=== PATIENT | male | born 1960 | race African-American/Black ===

== ENCOUNTER 2016-07-25 12:13 | Emergency (ER) | payer OTHER ==
[~2016-07-25] VITALS: Ht 175.3 cm; Wt 59.0 kg
[~2016-07-25 12:13] MED LIST: AMLO10TA4 PO; ASPI81TA31 PO; CLOP75TA2 PO; LORA2TAB PO; Metoprolol Tartrate PO; QUET100T PO
--- NOTE | 2016-07-25 12:32 | NUR ---
pt was evaluated by dr Lowe. pt was d/c to home. d/c tinstructions given to the pt.
[2016-07-25 12:33] VITALS: BP 140/79
== END 2016-07-25 12:34 | disposition home or self-care (01) ==
LOC: ER 12:13
DX: M72.2 Plantar fascial fibromatosis (principal); I10 Essential (primary) hypertension; F10.20 Alcohol dependence, uncomplicated; Z88.1 Allergy status to other antibiotic agents; Z88.8 Allergy status to other drugs, medicaments and biological substances; Z79.82 Long term (current) use of aspirin
CPT/HCPCS: 99283; A4663

== ENCOUNTER 2016-08-09 15:30 | Emergency (ER) | payer OTHER ==
[~2016-08-09] VITALS: Ht 175.3 cm; Wt 59.0 kg
--- NOTE | 2016-08-09 16:00 | NUR ---
Patient discharged to home in stable conditon. Written and verbal after care instructions given. Patient verbalizes understanding of instructions.pt walks in steady gait
== END 2016-08-09 16:12 | disposition home or self-care (01) ==
LOC: ER 15:33
DX: Z76.0 Encounter for issue of repeat prescription (principal); G89.29 Other chronic pain; F10.20 Alcohol dependence, uncomplicated; I10 Essential (primary) hypertension; Z88.1 Allergy status to other antibiotic agents; Z88.8 Allergy status to other drugs, medicaments and biological substances
CPT/HCPCS: 99283; A4663

== ENCOUNTER 2016-08-16 12:54 | Emergency (ER) | payer OTHER ==
[~2016-08-16] VITALS: Ht 172.7 cm; Wt 59.0 kg
--- NOTE | 2016-08-16 13:10 | NUR ---
Pt ambulatory to bed 4.
[2016-08-16] MEDS ORDERED: HYDROMORPHONE 1 MG/1 ML DISP.SYRIN IM ONE (13:30)
[2016-08-16] MEDS ORDERED: PROMETHAZINE HCL 25 MG/1 ML VIAL IM ONE (13:30)
[2016-08-16] MEDS ORDERED: PROMETHAZINE HCL 25 MG/1 ML VIAL ONE (13:50)
[2016-08-16] MEDS ORDERED: HYDROMORPHONE 2 MG/1 ML DISP.SYRIN ONE (13:50)
--- NOTE | 2016-08-16 13:54 | NUR ---
Patient discharged to home in stable conditon. Written and verbal after care instructions given to patient. Patient verbalizes understanding of instructions. Patient briskly ambulated OUT of ER with steady gait after the discharge instructions and papers were given.
== END 2016-08-16 13:56 | disposition home or self-care (01) ==
LOC: ER 12:54
DX: Z76.0 Encounter for issue of repeat prescription (principal); M54.9 Dorsalgia, unspecified; F41.9 Anxiety disorder, unspecified; I10 Essential (primary) hypertension; G89.29 Other chronic pain; F10.20 Alcohol dependence, uncomplicated; Z88.1 Allergy status to other antibiotic agents; Z88.8 Allergy status to other drugs, medicaments and biological substances; Z79.82 Long term (current) use of aspirin
CPT/HCPCS: 96372 ×2; 99284; A4663; J1170; J2550

== ENCOUNTER 2016-09-19 10:21 | Emergency (ER) | payer OTHER ==
[~2016-09-19] VITALS: Ht 172.7 cm; Wt 59.0 kg
[2016-09-19] MEDS ORDERED: HYDR-548 PO (10:28)
--- NOTE | 2016-09-19 10:40 | NUR ---
Patient discharged to home in stable conditon. Written and verbal after care instructions given to patient. Patient verbalizes understanding of instructions.
[2016-09-19] MEDS ORDERED: HYDROMORPHONE 1 MG/1 ML DISP.SYRIN IM ONE (10:45)
[2016-09-19] MEDS ORDERED: PROMETHAZINE HCL 25 MG/1 ML VIAL IM ONE (10:45)
[2016-09-19] MEDS ORDERED: HYDROMORPHONE 2 MG/1 ML DISP.SYRIN ONE (10:49)
[2016-09-19] MEDS ORDERED: PROMETHAZINE HCL 25 MG/1 ML VIAL ONE (10:49)
== END 2016-09-19 10:42 | disposition home or self-care (01) ==
LOC: ER 10:21
DX: M54.5 Low back pain (principal); I10 Essential (primary) hypertension; F10.20 Alcohol dependence, uncomplicated; Z88.8 Allergy status to other drugs, medicaments and biological substances; Z88.1 Allergy status to other antibiotic agents; Z79.82 Long term (current) use of aspirin
CPT/HCPCS: A4663; J1170; J2550

== ENCOUNTER 2016-10-09 20:31 | Emergency (ER) | payer OTHER ==
[~2016-10-09] VITALS: Ht 172.7 cm; Wt 59.0 kg
[~2016-10-09 20:31] MED LIST changes: +HYDR-548 PO
[2016-10-09] MEDS: HYDROMORPHONE 1 MG/1 ML DISP.SYRIN IM ONE (21:30)
[2016-10-09] MEDS ORDERED: PROMETHAZINE HCL 25 MG/1 ML VIAL ONE (21:30)
[2016-10-09] MEDS ORDERED: HYDROMORPHONE 1 MG/1 ML DISP.SYRIN ONE ×2 (21:30→21:32)
[2016-10-09] MEDS: PROMETHAZINE HCL 25 MG/1 ML VIAL IM ONE (21:31)
--- NOTE | 2016-10-09 21:31 | NUR ---
Pt to room, pt c/o back pain then sts he developed intermittent left sided chest pain around approx 1600. Pt seen by MD. To the MD pt verbalized back pain and need for medication refills. Pt medicated for discomfort. Will monitor for effects of medication.
--- NOTE | 2016-10-09 21:48 | NUR ---
Pt stable for discharge per MD. Pt given ACI. Pt verbalized understanding of dc instructions. Pt ambulated out of er with steady gait.
[2016-10-09 21:49] VITALS: BP 177/82
== END 2016-10-09 21:50 | disposition home or self-care (01) ==
LOC: ER 20:34
DX: M54.9 Dorsalgia, unspecified (principal); Z76.0 Encounter for issue of repeat prescription; Z88.1 Allergy status to other antibiotic agents; Z88.8 Allergy status to other drugs, medicaments and biological substances; I10 Essential (primary) hypertension
CPT/HCPCS: 93005; A4663; J1170; J2550

== ENCOUNTER 2016-10-27 20:08 | Emergency (ER) | payer OTHER ==
[~2016-10-27] VITALS: Ht 172.7 cm; Wt 59.0 kg
[~2016-10-27 20:08] MED LIST changes: +CLOP75TA15 PO; -CLOP75TA2 PO
--- NOTE | 2016-10-27 20:16 | NUR ---
PATIENT WALKED INTO ER C/O NECK,BACK AND RIGHT FOOT PAIN WHICH IS CHRONIC. HERE FOR WORSENING SYMPTOMS. PT IS ALERT, ORIENTED X 4, NO RESP DISTRESS NOTED OR REPORTED UPON ASSESSMENT... MD AT BEDSIDE...
[2016-10-27] MEDS ORDERED: PROMETHAZINE HCL 25 MG/1 ML VIAL IM ONE (20:45)
[2016-10-27] MEDS ORDERED: HYDROMORPHONE 1 MG/1 ML DISP.SYRIN IM ONE (20:45)
--- NOTE | 2016-10-27 20:47 | NUR ---
Patient discharged to home in stable conditon. Written and verbal after care instructions given. Patient verbalizes understanding of instructions. pt walked out of er unassisted with belongings at side...
[2016-10-27 20:48] VITALS: BP 144/97
[2016-10-27] MEDS ORDERED: HYDROMORPHONE 2 MG/1 ML DISP.SYRIN ONE (20:49)
[2016-10-27] MEDS ORDERED: PROMETHAZINE HCL 25 MG/1 ML VIAL ONE (20:49)
== END 2016-10-27 20:49 | disposition home or self-care (01) ==
LOC: ER 20:10
DX: M54.2 Cervicalgia (principal); G89.29 Other chronic pain; M79.672 Pain in left foot; F10.20 Alcohol dependence, uncomplicated; I10 Essential (primary) hypertension; Z88.1 Allergy status to other antibiotic agents; Z88.8 Allergy status to other drugs, medicaments and biological substances; Z79.82 Long term (current) use of aspirin
CPT/HCPCS: A4663; J1170; J2550

== ENCOUNTER 2016-11-22 20:46 | Emergency (ER) | payer OTHER ==
[~2016-11-22] VITALS: Ht 172.7 cm; Wt 59.0 kg
[2016-11-22] MEDS ORDERED: HYDROMORPHONE 1 MG/1 ML DISP.SYRIN IM ONE (21:30)
[2016-11-22] MEDS ORDERED: PROMETHAZINE HCL 25 MG/1 ML VIAL IM ONE (21:30)
--- NOTE | 2016-11-22 21:40 | NUR ---
Pt ambulated to room with steady gait. Pt c/o chronic low back pain. Pt seen by MD. Pt medicated for discomfort. Will monitor for effects of medication. Pt resting in position of comfort for self.
[2016-11-22] MEDS ORDERED: HYDROMORPHONE 1 MG/1 ML DISP.SYRIN ONE (21:46)
[2016-11-22] MEDS ORDERED: PROMETHAZINE HCL 25 MG/1 ML VIAL ONE (21:46)
--- NOTE | 2016-11-22 22:02 | NUR ---
Pt sts pain improving. Pt stable for discharge per MD. Pt given ACI. Pt verbalized understanding of dc instructions. Pt ambulated out of er with steady gait, alert and oriented with all personal belongings.
[2016-11-22 22:04] VITALS: BP 164/95
== END 2016-11-22 22:00 | disposition home or self-care (01) ==
LOC: ER 20:46
DX: Z76.0 Encounter for issue of repeat prescription (principal); I10 Essential (primary) hypertension; F10.20 Alcohol dependence, uncomplicated; Z88.1 Allergy status to other antibiotic agents; Z88.8 Allergy status to other drugs, medicaments and biological substances; Z79.82 Long term (current) use of aspirin
CPT/HCPCS: A4663; J1170; J2550

== ENCOUNTER 2016-12-20 10:22 | Emergency (ER) | payer OTHER ==
[~2016-12-20] VITALS: Ht 180.3 cm; Wt 61.2 kg
[2016-12-20] MEDS ORDERED: PROMETHAZINE HCL 25 MG/1 ML VIAL IM ONE (10:45)
[2016-12-20] MEDS ORDERED: HYDROMORPHONE 1 MG/1 ML DISP.SYRIN IM ONE (10:45)
--- NOTE | 2016-12-20 10:48 | NUR ---
Patient discharged to home in stable conditon. Written and verbal after care instructions given. Patient verbalizes understanding of instructions.
[2016-12-20] MEDS ORDERED: PROMETHAZINE HCL 25 MG/1 ML VIAL ONE (10:56)
[2016-12-20] MEDS ORDERED: HYDROMORPHONE 2 MG/1 ML DISP.SYRIN ONE (10:56)
== END 2016-12-20 10:50 | disposition home or self-care (01) ==
LOC: ER 10:22
DX: Z76.0 Encounter for issue of repeat prescription (principal); M54.9 Dorsalgia, unspecified; G89.29 Other chronic pain; I10 Essential (primary) hypertension; Z88.6 Allergy status to analgesic agent; Z88.5 Allergy status to narcotic agent
CPT/HCPCS: 96372 ×2; 99284; A4663; J1170; J2550

== ENCOUNTER 2016-12-22 19:44 | Inpatient (IN) | payer OTHER ==
[~2016-12-22] VITALS: Ht 172.7 cm; Wt 58.1 kg
[2016-12-22] MEDS ORDERED: ASPIRIN 325 MG TABLET PO ONE (20:15)
--- NOTE | 2016-12-22 20:18 | NUR ---
Pt ambulated to room with steady gait. Pt c/o non radiating substernal chest pain started approx 1700. As well as abd pain with N/V. Pt placed on monitor ST. EKG obtained and given to Dr. Ball. Pt resting in position of comfort for self. Resp even and unlabored. No N/V noted pt spitting into vomit bag. Lab at bedside.
[2016-12-22] MEDS ORDERED: ASPIRIN 325 MG TABLET ONE (21:03)
--- NOTE | 2016-12-22 22:00 | NUR ---
Several attempts made, unable to obtain labs. IV established to L. shoulder after three attempts. Not able to obtain labs from IV. Dr. Ball notified. Pt set up for femoral stick. Pt requesting ativan and pain medication. Dr. Ball notified. Awaiting further orders.
[2016-12-22] MEDS ORDERED: ONDANSETRON IV *ER 4 MG/2 ML VIAL IV ONE (22:15)
[2016-12-22] MEDS ORDERED: HYDROMORPHONE 1 MG/1 ML DISP.SYRIN IV ONE (22:15)
[2016-12-22] MEDS ORDERED: LORAZEPAM 2 MG/1 ML VIAL IV ONE (22:15)
[2016-12-22 22:30] LABS: BASOPHILS % (AUTO) 0.3 % (0.0-2.0); EOSINOPHILS # (AUTO) 0.1 K/uL (0.0-0.7); EOSINOPHILS % (AUTO) 1.3 % (0.0-7.0); HEMATOCRIT 32.4 % (40-50); HEMOGLOBIN 10.5 G/DL (14.0-18.0); LYMPHOCYTES # (AUTO) 0.5 K/UL (0.8-4.8); LYMPHOCYTES % (AUTO) 10.7 % (20.5-51.5); MEAN CORPUSCULAR HEMOGLOBIN 27.1 UUG (27.0-31.0); MEAN CORPUSCULAR HGB CONC 32 g/dL (32.0-37.0); MEAN CORPUSCULAR VOLUME 83.9 FL (82.0-92.0); MONOCYTES # (AUTO) 0.2 K/UL (0.1-1.30); MONOCYTES % (AUTO) 3.5 % (0.0-11.0); NEUTROPHILS # (AUTO) 3.8 K/UL (1.8-8.9); NEUTROPHILS % (AUTO) 84.2 % (38.5-71.5); PLATELET COUNT (AUTO) 288 K/UL (150-450); RED BLOOD CELL COUNT(AUTO) 3.87 MIL/UL (4.7-6.1); WHITE BLOOD COUNT (AUTO) 4.6 K/UL (4.0-11.2)
[2016-12-22 22:47] LABS: CREATININE 1.7 mg/dL (0.6-1.3); POTASSIUM 3.9 mmol/L (3.5-5.1)
[2016-12-22] MEDS ORDERED: HYDROMORPHONE 2 MG/1 ML DISP.SYRIN ONE (22:57)
[2016-12-22] MEDS ORDERED: ONDANSETRON 4 MG/2 ML VIAL ONE (22:58)
[2016-12-22] MEDS ORDERED: LORAZEPAM 2 MG/1 ML VIAL ONE (22:58)
[2016-12-22 23:01] LABS: BILIRUBIN,DIRECT 0.2 mg/dL (0.0-0.2); BILIRUBIN,TOTAL 0.4 mg/dL (0.2-1.0); TOTAL PROTEIN, SERUM 8.1 g/dL (6.4-8.2)
--- NOTE | 2016-12-22 23:16 | NUR ---
Pt medicated for discomfort, will monitor for effects of medication. Pt repositioned for comfort. Pt remains ST on monitor. Fluid bolus infusing freely to gravity.
[2016-12-22] MEDS ORDERED: IV NORMAL SALINE 1000 ML BAG IV ONE (23:30)
[2016-12-23] MEDS ORDERED: hydrALAZINE HCL 20 MG/1 ML VIAL IV ONE (00:15)
--- NOTE | 2016-12-23 00:18 | NUR ---
Report called to SHRAVAN Sinclair. Dr. Ball notified of pt's blood pressure. Awaiting further orders.
--- NOTE | 2016-12-23 00:25 | NUR ---
Pt medicated for elevated bp, will monitor for effects of medication
[2016-12-23] MEDS ORDERED: hydrALAZINE HCL 20 MG/1 ML VIAL ONE (00:35)
--- NOTE | 2016-12-23 00:55 | NUR ---
Per Dr. Ball, repeat lactic not required at this time.
--- NOTE | 2016-12-23 01:00 | NUR ---
Pt blood pressure improved. Preparing to transfer pt to the floor.
[2016-12-23 01:22] VITALS: BP 119/65
[2016-12-23 04:00] VITALS: BP 120/79
[2016-12-23] MEDS ORDERED: ONDANSETRON 4 MG/2 ML VIAL IV PRN (05:00)
[2016-12-23] MEDS ORDERED: MAGNESIUM HYDROXIDE 30 ML LIQUID UDC PO PRN (05:00)
[2016-12-23] MEDS ORDERED: LORAZEPAM 0.5 MG TABLET PO PRN (05:00)
[2016-12-23] MEDS ORDERED: HYDROCODONE/APAP 5-325MG TABLET PO PRN (05:00)
[2016-12-23] MEDS ORDERED: Z GUARD REMEDY PASTE 57 GM TUBE TOP PRN (05:00)
[2016-12-23] MEDS ORDERED: ACETAMINOPHEN 325 MG TABLET PO PRN (05:00)
[2016-12-23] MEDS ORDERED: ZOLPIDEM 5 MG TABLET PO PRN (05:00)
[2016-12-23] MEDS: MORPHINE SULFATE 2 MG/1 ML DISP.SYRIN IV PRN ×2 (05:20→09:31)
[2016-12-23] MEDS ORDERED: MORPHINE SULFATE 2 MG/1 ML DISP.SYRIN ONE (05:29)
[2016-12-23] MEDS ORDERED: IV NS 1000 ML 1,000 ML IV PRN (06:45)
--- NOTE | 2016-12-23 07:51 | NUR ---
CADIAC DIET PER DR NAVARRO
[2016-12-23] MEDS: PANTOPRAZOLE SODIUM 40 MG TABLET.DR PO SCH (08:33)
[2016-12-23] MEDS: QUETIAPINE FUMARATE 100 MG TABLET PO SCH ×2 (08:34→16:13)
[2016-12-23] MEDS: CLOPIDOGREL 75 MG TABLET PO SCH (08:34)
[2016-12-23] MEDS: NITROGLYCERIN OINT 1 GM PACKET TP SCH ×3 (08:34→17:46)
[2016-12-23] MEDS: ASPIRIN 81 MG TAB.CHEW PO SCH (08:34)
[2016-12-23] MEDS ORDERED: HYDROCODONE/APAP 10-325 MG TABLET PO SCH (09:00)
[2016-12-23] MEDS ORDERED: METOPROLOL TARTRATE 25 MG TABLET PO SCH (09:00)
[2016-12-23] MEDS: AMLODIPINE 10 MG TABLET PO SCH (09:00)
[2016-12-23] MEDS ORDERED: ENOXAPARIN SODIUM 60 MG/0.6 ML DISP.SYRIN SQ SCH (09:30)
[2016-12-23 10:39] LABS: BILIRUBIN,TOTAL 0.2 mg/dL (0.2-1.0); CREATININE 1.7 mg/dL (0.6-1.3); MAGNESIUM 1.9 mg/dL (1.8-2.4); PHOSPHOROUS 1.6 mg/dL (2.5-4.9); POTASSIUM 3.7 mmol/L (3.5-5.1); TOTAL PROTEIN, SERUM 6.8 g/dL (6.4-8.2)
[2016-12-23 10:42] LABS: BASOPHILS % (AUTO) 0.4 % (0.0-2.0); EOSINOPHILS # (AUTO) 0.1 K/uL (0.0-0.7); EOSINOPHILS % (AUTO) 3.2 % (0.0-7.0); HEMOGLOBIN 9.3 G/DL (14.0-18.0); LYMPHOCYTES # (AUTO) 0.7 K/UL (0.8-4.8); LYMPHOCYTES % (AUTO) 22.3 % (20.5-51.5); MEAN CORPUSCULAR HEMOGLOBIN 27.7 UUG (27.0-31.0); MEAN CORPUSCULAR HGB CONC 33 g/dL (32.0-37.0); MEAN CORPUSCULAR VOLUME 85.1 FL (82.0-92.0); MONOCYTES # (AUTO) 0.3 K/UL (0.1-1.30); MONOCYTES % (AUTO) 8.4 % (0.0-11.0); NEUTROPHILS # (AUTO) 2.2 K/UL (1.8-8.9); NEUTROPHILS % (AUTO) 65.7 % (38.5-71.5); PLATELET COUNT (AUTO) 288 K/UL (150-450)
[2016-12-23] MEDS ORDERED: METOPROLOL TARTRATE 25 MG TABLET PO ONE (10:45)
[2016-12-23 10:48] LABS: HEMATOCRIT 28.5 % (40-50); RED BLOOD CELL COUNT(AUTO) 3.35 MIL/UL (4.7-6.1); WHITE BLOOD COUNT (AUTO) 3.3 K/UL (4.0-11.2)
[2016-12-23] MEDS ORDERED: HYDROMORPHONE 1 MG/1 ML DISP.SYRIN IV PRN (11:00)
--- NOTE | 2016-12-23 11:00 | NUR ---
PER LARISSA EGAN "SWITCH DILAUDID 1MG Q4H PRN" . "STOP MORPHINE 2MG"
[2016-12-23 11:42] VITALS: BP 102/70
[2016-12-23 12:26] LABS: THYROID STIMULATING HORMONE 0.388 mIU/mL (0.358-3.740)
[2016-12-23] MEDS: HYDROMORPHONE 2 MG/1 ML DISP.SYRIN IV PRN ×2 (13:26→20:10)
--- NOTE | 2016-12-23 13:44 | NUR ---
pt asks for benadryl iv, paged LARISSA Thomas. Per LARISSA Live "claritin 10mg po daily"
[2016-12-23 13:57] LABS: *BLOOD, URINE NEGATIVE (NEGATIVE); *CLARITY,URINE CLEAR (CLEAR); *COLOR,URINE YELLOW (YELLOW); *KETONES,URINE NEGATIVE (NEGATIVE); *PROTEIN,URINE 2+ (NEGATIVE); *UROBILINOGEN,URINE 0.2 E.U./dl (NORMAL); LEUKOCYTE ESTERASE ,URINE NEGATIVE (NEGATIVE); NITRITE, URINE NEGATIVE (NEGATIVE); PH,URINE 5.5 (5.0-8.0); UGLUCOSE NEGATIVE (NEGATIVE)
[2016-12-23 13:58] LABS: *BILIRUBIN,URIN 1+ (NEGATIVE)
[2016-12-23 14:00] LABS: BACTERIA,URINE NONE SEEN /HPF (NONE SEEN); MUCUS,URINE FEW /LPF (0-FEW); RBC,URINE NONE SEEN /HPF (0-3); SQUAMOUS EPITHELIAL CELL,UR FEW /HPF (NONE SEEN); WBC,URINE 0-3 /HPF (0-3)
[2016-12-23] MEDS: LORATADINE 10 MG TABLET PO SCH (14:16)
[2016-12-23] MEDS ORDERED: NEUTRA PHOS PACKET PO ONE (15:45)
[2016-12-23 15:59] VITALS: BP 120/72
--- NOTE | 2016-12-23 16:17 | NUR ---
PT REFUSED DVT PUMPS
[2016-12-23 16:56] LABS: IRON, SERUM 37 ug/dL (50-175)
[2016-12-23 17:06] LABS: MAGNESIUM 1.8 mg/dL (1.8-2.4); PHOSPHOROUS 1.8 mg/dL (2.5-4.9)
--- NOTE | 2016-12-23 19:00 | NUR ---
PT IS MISSING IV, TRIED 2 TIMES. LET ANOTHER NURSE TRY TO START AN IV. PT IS HARD STICK AND REFUSES TO BE STACK AGAIN. CALLED FOR MIDLINE PER MD ORDER. PT IS ASKING FOR PAIN MEDICATIONS. NO S/S OF RESPIRATORY DISTRESS NOTED. ALL SAFETY NEEDS ARE MET.
--- NOTE | 2016-12-23 19:30 | NUR ---
Pt in room awake and requesting pain medication. Awaiting Midline nurse at this time. Denies any chest pain and no signs of distress at this time.
[2016-12-23] MEDS: LORAZEPAM 2 MG/1 ML VIAL IV PRN (20:13)
[2016-12-23 20:31] VITALS: BP 134/88
[2016-12-23] MEDS ORDERED: DOCUSATE SODIUM 100 MG CAPSULE PO SCH (21:00)
[2016-12-23] MEDS: METOPROLOL TARTRATE 50 MG TABLET PO SCH (21:35)
[2016-12-23] MEDS: MAGNESIUM SULFATE/D5W 100 ML IV SCH (22:11)
[2016-12-24] MEDS: HYDROMORPHONE 2 MG/1 ML DISP.SYRIN IV PRN ×2 (00:18→05:24)
[2016-12-24] MEDS: MAGNESIUM SULFATE/D5W 100 ML IV SCH (00:19)
[2016-12-24] MEDS: NITROGLYCERIN OINT 1 GM PACKET TP SCH ×3 (00:20→11:40)
[2016-12-24 00:32] VITALS: BP 145/99
[2016-12-24] MEDS: LORAZEPAM 2 MG/1 ML VIAL IV PRN ×2 (01:52→07:37)
--- NOTE | 2016-12-24 01:55 | NUR ---
Pt agitated and wanting to get up out of bed. Pt confused and states I want to go out of the room. Fall precaution emphasized and currently has midline to right upper arm inserted. Pt's HR increases 120s upon movement. No reports of distress or chest pain at this time. Ativan PRN given.
[2016-12-24 04:00] VITALS: BP 154/107
[2016-12-24] MEDS: PANTOPRAZOLE SODIUM 40 MG TABLET.DR PO SCH (05:23)
--- NOTE | 2016-12-24 07:57 | NUR ---
PATIENT RECEIVED IN ROOM RESTING ALERT AWAKE BUT CONFUSED. PATIENT UNSTEADY WITH AMBULATION. IV SITE INTACT AND PATENT. CONTINUES ON 1:! SITTER AT BEDSIDE FOR SAFETY.
[2016-12-24] MEDS: ASPIRIN 81 MG TAB.CHEW PO SCH (08:18)
[2016-12-24] MEDS: LORATADINE 10 MG TABLET PO SCH (08:18)
[2016-12-24] MEDS: METOPROLOL TARTRATE 50 MG TABLET PO SCH (08:19)
[2016-12-24] MEDS: CLOPIDOGREL 75 MG TABLET PO SCH (08:19)
[2016-12-24] MEDS: QUETIAPINE FUMARATE 100 MG TABLET PO SCH (08:19)
[2016-12-24] MEDS: AMLODIPINE 10 MG TABLET PO SCH (08:19)
[2016-12-24 09:33] LABS: BASOPHILS % (AUTO) 0.4 % (0.0-2.0); EOSINOPHILS # (AUTO) 0.2 K/uL (0.0-0.7); EOSINOPHILS % (AUTO) 5.4 % (0.0-7.0); HEMATOCRIT 26.9 % (40-50); HEMOGLOBIN 8.7 G/DL (14.0-18.0); LYMPHOCYTES # (AUTO) 0.7 K/UL (0.8-4.8); LYMPHOCYTES % (AUTO) 21.1 % (20.5-51.5); MEAN CORPUSCULAR HEMOGLOBIN 27.5 UUG (27.0-31.0); MEAN CORPUSCULAR HGB CONC 32 g/dL (32.0-37.0); MEAN CORPUSCULAR VOLUME 85.3 FL (82.0-92.0); MONOCYTES # (AUTO) 0.2 K/UL (0.1-1.30); MONOCYTES % (AUTO) 7.4 % (0.0-11.0); NEUTROPHILS % (AUTO) 65.7 % (38.5-71.5); PLATELET COUNT (AUTO) 256 K/UL (150-450); RED BLOOD CELL COUNT(AUTO) 3.16 MIL/UL (4.7-6.1); WHITE BLOOD COUNT (AUTO) 3.1 K/UL (4.0-11.2)
[2016-12-24 09:53] LABS: BILIRUBIN,TOTAL 0.4 mg/dL (0.2-1.0); CREATININE 1.5 mg/dL (0.6-1.3); IRON, SERUM 28 ug/dL (50-175); MAGNESIUM 2.2 mg/dL (1.8-2.4); PHOSPHOROUS 2.7 mg/dL (2.5-4.9); POTASSIUM 3.6 mmol/L (3.5-5.1); TOTAL PROTEIN, SERUM 6.5 g/dL (6.4-8.2)
[2016-12-24] MEDS ORDERED: hydrALAZINE HCL 25 MG TABLET PO PRN (10:45)
[2016-12-24] MEDS ORDERED: LORAZEPAM 0.5 MG TABLET PO PRN (10:45)
[2016-12-24] MEDS ORDERED: FERROUS SULFATE 325 MG TABEC PO SCH (10:45)
[2016-12-24 11:34] VITALS: BP 139/90
[2016-12-24 11:40] VITALS: BP 139/90
--- NOTE | 2016-12-24 14:23 | NUR ---
PATIENT STATED HE WANTED TO LEAVE AMA. ASKED FOR MIDLINE TO BE TAKEN OUT. PATIENT UNSTEADY AND UNSAFE TO LEAVE AT THIS TIME. CHARLIE DAWN GEMOLOGIST NOTIFIED, ORDERS RECEIVED TO CALL CRISIS TEAM. PATIENT EVALUATED BY CRISIS TEAM AND CLEARED TO GO HOME. PATIENT STATED WILL BE PICKED UP BY BROTHER. PATIENT NOW ABLE TO AMBULATE WITHOUT ASSISTANCE. MIDLINE REMOVED, PRESSURE APPLIED AND HEMOSTASIS ACHIEVED. WALKED TO FRONT OF THE BUILDING. PATIENT STATED WILL BE PICKED UP BY HIS BROTHER. CHARGE NURSE AND CHARLIE GEMOLOGIST NOTIFIED.
== END 2016-12-24 14:35 | disposition left against medical advice (07) | DRG 243 ==
LOC: ER 19:45 → TELE 21:30
PROVIDERS: ADMIT Nurse Practitioner Acute Care; ATTEND Internal Medicine
PROC: 05H533Z Insertion of Infusion Device into Right Subclavian Vein, Percutaneous Approach (ICD-10-PCS; principal; 2016-12-23)
DX: K21.9 Gastro-esophageal reflux disease without esophagitis (principal); I47.2 Ventricular tachycardia; E87.2 Acidosis; D68.9 Coagulation defect, unspecified; E83.39 Other disorders of phosphorus metabolism; I12.9 Hypertensive chronic kidney disease with stage 1 through stage 4 chronic kidney disease, or unspecified chronic kidney disease; F11.10 Opioid abuse, uncomplicated; D50.9 Iron deficiency anemia, unspecified; I25.2 Old myocardial infarction; I25.10 Atherosclerotic heart disease of native coronary artery without angina pectoris; N18.9 Chronic kidney disease, unspecified; Z95.5 Presence of coronary angioplasty implant and graft; Z76.5 Malingerer [conscious simulation]; J44.9 Chronic obstructive pulmonary disease, unspecified; Z79.02 Long term (current) use of antithrombotics/antiplatelets; Z79.82 Long term (current) use of aspirin; Z79.899 Other long term (current) drug therapy; Z87.828 Personal history of other (healed) physical injury and trauma; D63.8 Anemia in other chronic diseases classified elsewhere; F31.9 Bipolar disorder, unspecified; R74.0 Nonspecific elevation of levels of transaminase and lactic acid dehydrogenase [LDH]; Z86.19 Personal history of other infectious and parasitic diseases; F10.10 Alcohol abuse, uncomplicated; Z82.5 Family history of asthma and other chronic lower respiratory diseases; Z82.49 Family history of ischemic heart disease and other diseases of the circulatory system; F17.210 Nicotine dependence, cigarettes, uncomplicated; R44.1 Visual hallucinations; E78.5 Hyperlipidemia, unspecified; R20.0 Anesthesia of skin; F14.90 Cocaine use, unspecified, uncomplicated; R73.9 Hyperglycemia, unspecified; R10.13 Epigastric pain; R11.2 Nausea with vomiting, unspecified
CPT/HCPCS: 36415; 36569; 70030-TC; 71010; 76770; 80307; 83550; 83605; 83690; 83735; 84100; 84443; 85025; 85610; 85730; 87040; 87086; 93005; 93307; A4663; J0360; J1170; J1650; J2060; J2270; J2405; J3475; J7030

== ENCOUNTER 2017-01-18 13:33 | Emergency (ER) | payer OTHER ==
[~2017-01-18] VITALS: Ht 172.7 cm; Wt 56.7 kg
--- NOTE | 2017-01-18 13:55 | NUR ---
Dr Lowe at the bedside for eval and exam.
[2017-01-18 14:09] VITALS: BP 133/98
--- NOTE | 2017-01-18 14:10 | NUR ---
Patient discharged to home in stable conditon. Written and verbal after care instructions given. Patient verbalizes understanding of instructions. Pt walk out of ER w/ steady gait.
== END 2017-01-18 14:11 | disposition home or self-care (01) ==
LOC: ER 13:33
DX: Z76.0 Encounter for issue of repeat prescription (principal); G89.29 Other chronic pain; Z59.0 Homelessness; I10 Essential (primary) hypertension; I25.2 Old myocardial infarction; K21.9 Gastro-esophageal reflux disease without esophagitis; Z95.5 Presence of coronary angioplasty implant and graft; Z79.82 Long term (current) use of aspirin
CPT/HCPCS: 96372; 99283; A4663; J1170

== ENCOUNTER 2017-02-07 14:54 | Emergency (ER) | payer OTHER ==
[~2017-02-07] VITALS: Ht 172.7 cm; Wt 56.2 kg
[2017-02-07 17:07] VITALS: BP 139/91
--- NOTE | 2017-02-07 17:08 | NUR ---
Patient discharged to home in stable conditon. Written and verbal after care instructions given. Patient verbalizes understanding of instructions.pt walks in steady gait. pt not driving
== END 2017-02-07 17:09 | disposition home or self-care (01) ==
LOC: ER 14:56
DX: G89.29 Other chronic pain (principal); M54.9 Dorsalgia, unspecified; Z59.0 Homelessness; Z95.5 Presence of coronary angioplasty implant and graft; Z79.82 Long term (current) use of aspirin
CPT/HCPCS: A4663; J1170; J2550

== ENCOUNTER 2017-03-14 09:30 | Emergency (ER) | payer OTHER ==
[~2017-03-14] VITALS: Ht 172.7 cm; Wt 63.5 kg
--- NOTE | 2017-03-14 09:57 | NUR ---
Patient discharged to home in stable conditon. Written and verbal after care instructions given. Patient verbalizes understanding of instructions.
[2017-03-14] MEDS ORDERED: PROMETHAZINE HCL 25 MG/1 ML VIAL IM ONE (10:00)
[2017-03-14] MEDS ORDERED: HYDROMORPHONE 1 MG/1 ML DISP.SYRIN IM ONE (10:00)
[2017-03-14] MEDS ORDERED: PROMETHAZINE HCL 25 MG/1 ML VIAL ONE (10:09)
[2017-03-14] MEDS ORDERED: HYDROMORPHONE 2 MG/1 ML DISP.SYRIN ONE (10:09)
[2017-03-14] MEDS ORDERED: HYDROMORPHONE 1 MG/1 ML DISP.SYRIN ONE (10:09)
== END 2017-03-14 10:25 | disposition home or self-care (01) ==
LOC: ER 09:32
DX: Z76.0 Encounter for issue of repeat prescription (principal); G89.29 Other chronic pain; M54.2 Cervicalgia; Z79.82 Long term (current) use of aspirin; Z95.5 Presence of coronary angioplasty implant and graft; Z88.1 Allergy status to other antibiotic agents; Z88.8 Allergy status to other drugs, medicaments and biological substances
CPT/HCPCS: 96372 ×2; 99284; A4663; J1170 ×2; J2550

== ENCOUNTER 2017-03-14 13:52 | Emergency (ER) | payer OTHER ==
--- NOTE | 2017-03-14 14:06 | NUR ---
CALLED THE PT 3 TIMES AND NO ANSWER.
== END 2017-03-14 14:08 | disposition left against medical advice (07) ==
LOC: ER 13:58
DX: Z53.21 Procedure and treatment not carried out due to patient leaving prior to being seen by health care provider (principal)

== ENCOUNTER 2017-03-19 12:24 | Emergency (ER) | payer OTHER ==
[~2017-03-19] VITALS: Ht 172.7 cm; Wt 63.5 kg
[2017-03-19] MEDS ORDERED: HYDROMORPHONE 1 MG/1 ML DISP.SYRIN IM ONE (12:45)
[2017-03-19] MEDS ORDERED: PROMETHAZINE HCL 25 MG/1 ML VIAL IM ONE (12:45)
--- NOTE | 2017-03-19 12:51 | NUR ---
MSE COMPLETED, MEDS ADMINISTERED, PT D/C'D HOME, ACI GIVEN. PT AMBULTED W/O DIFF/TOOK ALL BELONGINGS.
[2017-03-19 12:53] VITALS: BP 132/78
[2017-03-19] MEDS ORDERED: HYDROMORPHONE 2 MG/1 ML DISP.SYRIN ONE (13:01)
[2017-03-19] MEDS ORDERED: PROMETHAZINE HCL 25 MG/1 ML VIAL ONE (13:01)
== END 2017-03-19 12:54 | disposition home or self-care (01) ==
LOC: ER 12:24
DX: G89.29 Other chronic pain (principal); M54.9 Dorsalgia, unspecified; K85.90 Acute pancreatitis without necrosis or infection, unspecified; Z79.82 Long term (current) use of aspirin; Z95.5 Presence of coronary angioplasty implant and graft; Z88.1 Allergy status to other antibiotic agents; Z88.8 Allergy status to other drugs, medicaments and biological substances
CPT/HCPCS: A4663; J1170; J2550

== ENCOUNTER 2017-03-19 17:54 | Emergency (ER) | payer OTHER | END 2017-03-19 18:06 | disposition left against medical advice (07) | LOC: ER 17:55 | DX: Z53.21 Procedure and treatment not carried out due to patient leaving prior to being seen by health care provider (principal) ==

== ENCOUNTER 2018-10-24 08:25 | Inpatient (IN) | payer MEDICAID, OTHER ==
[~2018-10-24] VITALS: Ht 172.7 cm; Wt 63.5 kg
[~2018-10-24 08:25] MED LIST changes: +ALPR0.255 PO; +HYDR-3326 PO; +HYDR-4354 PO; -HYDR-548 PO
--- NOTE | 2018-10-24 08:45 | NUR ---
Dr Moya at the bedside for MSE.
[2018-10-24] MEDS ORDERED: NITROGLYCERIN 0.4 MG/TAB BOTTLE SL ONE ×2 (09:00→09:03)
[2018-10-24] MEDS ORDERED: ASPIRIN 81 MG TAB.CHEW PO ONE (09:00)
[2018-10-24] MEDS ORDERED: ASPIRIN 81 MG TAB.CHEW ONE (09:03)
--- NOTE | 2018-10-24 09:05 | NUR ---
2nd dose of Nitro given, BP 149/100, HR 83, pt states chest pain is still 8/10.
--- NOTE | 2018-10-24 09:10 | NUR ---
3rd dose of Nitro SL admin, BP 149/100, HR 79. c/p is still 8/10 per pt.
--- NOTE | 2018-10-24 09:15 | NUR ---
Pt states chest pain not changed w/ Nitro. Dr Moya made aware.
[2018-10-24] MEDS ORDERED: NITROGLYCERIN OINT 1 GM PACKET TP ONE ×3 (09:35→12:15)
--- NOTE | 2018-10-24 09:44 | NUR ---
photo technician attempted to draw blood multiple times w/o success. Dr Moya aware.
--- NOTE | 2018-10-24 09:55 | NUR ---
Pt out of ER for CT.
--- NOTE | 2018-10-24 10:45 | NUR ---
Pt back from CT.
[2018-10-24] MEDS ORDERED: HYDROCODONE/APAP 10-325 MG TABLET PO ONE (11:45)
[2018-10-24 11:51] LABS: POTASSIUM 4.7 mmol/L (3.5-5.1)
[2018-10-24 12:01] LABS: BILIRUBIN,DIRECT 0.1 mg/dL (0.0-0.2); BILIRUBIN,TOTAL 0.3 mg/dL (0.2-1.0); TOTAL PROTEIN, SERUM 7.4 g/dL (6.4-8.2)
[2018-10-24] MEDS ORDERED: HYDROCODONE/APAP 10-325 MG TABLET ONE (12:01)
--- NOTE | 2018-10-24 12:26 | NUR ---
Patient is resting comfortably in bed with eyes closed, NAD noted.
--- NOTE | 2018-10-24 14:30 | NUR ---
Pt ate 2 lunch trays. pt states his chest pain has not changed since his arrival.
[2018-10-24 15:50] VITALS: BP 165/107
--- NOTE | 2018-10-24 16:00 | NUR ---
RECEIVED PATIENT FROM ER WITH DIAGNOSIS OF CHEST PAIN TRANSPORTED VIA WHEELCHAIR, PATIENT AMBULATORY IN ROOM AIR, NO SOB NOTED AT THIS TIME, VITALS TAKEN, BELONGING ACCOUNTED FOR.. WILL CONTINUE TO MONITOR.
[2018-10-24] MEDS ORDERED: PANT40TA2 PO (16:09)
[2018-10-24] MEDS ORDERED: HYDR100T27 PO (16:15)
[2018-10-24] MEDS ORDERED: ZOLP10TA2 PO (16:15)
[2018-10-24] MEDS ORDERED: NITROGLYCERIN 0.4 MG/TAB BOTTLE SL PRN (16:30)
[2018-10-24] MEDS ORDERED: Medication Not On Formulary EA (Zolpidem Tartrate (Ambien) 10 MG) PO SCH (16:30)
[2018-10-24] MEDS ORDERED: ONDANSETRON 4 MG/2 ML VIAL IV PRN (16:30)
[2018-10-24] MEDS ORDERED: Medication Not On Formulary EA (Lorazepam (Ativan) 2 MG) PO PRN (16:30)
[2018-10-24] MEDS ORDERED: ALPRAZOLAM 0.25 MG TABLET PO PRN (16:30)
[2018-10-24] MEDS ORDERED: ZOLPIDEM 5 MG TABLET PO PRN (16:30)
[2018-10-24] MEDS ORDERED: METOPROLOL TARTRATE 50 MG TABLET PO SCH (17:00)
[2018-10-24] MEDS: QUETIAPINE FUMARATE 100 MG TABLET PO SCH (17:16)
[2018-10-24] MEDS ORDERED: METOPROLOL TARTRATE 25 MG TABLET PO STA (17:24)
[2018-10-24] MEDS: MORPHINE SULFATE 2 MG/1 ML DISP.SYRIN IV PRN ×2 (17:57→23:30)
--- NOTE | 2018-10-24 19:30 | NUR ---
Received patient awake in bed, not in any form of distress. Alert and oriented x 3, ambulatory. On room air, tolerated. With IV access on the right wrist, 22g to saline lock. patient with complaints of pain, prn pain medication given. Blood pressure currently elevated, will give due hypertensive medication and closely monitor blood pressure. Bed in low position, locked, side rails up for safety.
[2018-10-24 20:06] VITALS: BP 165/100
[2018-10-24] MEDS: METOPROLOL TARTRATE 25 MG TABLET PO SCH (20:20)
[2018-10-24] MEDS: LORAZEPAM 1 MG TABLET PO PRN (21:26)
[2018-10-25 00:03] VITALS: BP 175/89
[2018-10-25 01:03] VITALS: BP 148/99
[2018-10-25 04:30] VITALS: BP 187/102
[2018-10-25] MEDS: MORPHINE SULFATE 2 MG/1 ML DISP.SYRIN IV PRN ×3 (05:36→15:09)
--- NOTE | 2018-10-25 05:47 | NUR ---
Patient slept well throughout the night. With complaints of pain, relieved by prn pain medications. Noted still with episode of elevated blood pressure, asymptomatic. Blood pressure goes down after dose of pain medications. Attended all needs. Ensured safety and comfort.
[2018-10-25] MEDS: LORAZEPAM 1 MG TABLET PO PRN (06:24)
[2018-10-25 07:45] LABS: BASOPHILS % (AUTO) 1.1 % (0.0-2.0); EOSINOPHILS # (AUTO) 0.7 K/uL (0.0-0.7); EOSINOPHILS % (AUTO) 21.7 % (0.0-7.0); HEMATOCRIT 33.3 % (36.7-47.1); LYMPHOCYTES # (AUTO) 0.8 K/uL (20.0-40.0); LYMPHOCYTES % (AUTO) 23.4 % (20.5-51.5); MEAN CORPUSCULAR HEMOGLOBIN 31.6 uug (23.8-33.4); MEAN CORPUSCULAR HGB CONC 33 g/dL (32.5-36.3); MONOCYTES # (AUTO) 0.3 K/uL (2.0-10.0); MONOCYTES % (AUTO) 7.6 % (0.0-11.0); NEUTROPHILS # (AUTO) 1.6 K/uL (1.8-8.9); NEUTROPHILS % (AUTO) 46.2 % (38.5-71.5); PLATELET COUNT (AUTO) 273 K/uL (152-348); RED BLOOD CELL COUNT(AUTO) 3.47 MIL/uL (4.06-5.63); WHITE BLOOD COUNT (AUTO) 3.4 K/uL (3.6-10.2)
[2018-10-25] MEDS: QUETIAPINE FUMARATE 100 MG TABLET PO SCH ×2 (08:23→17:11)
[2018-10-25] MEDS: METOPROLOL TARTRATE 25 MG TABLET PO SCH (08:23)
[2018-10-25 08:31] LABS: PHOSPHOROUS 3.6 mg/dL (2.5-4.9); POTASSIUM 4.3 mmol/L (3.5-5.1)
[2018-10-25] MEDS ORDERED: hydrALAZINE HCL 50 MG TABLET PO SCH ×2 (09:00→14:00)
[2018-10-25] MEDS ORDERED: AMLODIPINE 10 MG TABLET PO SCH (09:00)
[2018-10-25] MEDS ORDERED: ASPIRIN 81 MG TAB.CHEW PO SCH (09:00)
[2018-10-25] MEDS ORDERED: PANTOPRAZOLE SODIUM 40 MG TABLET.DR PO SCH (09:00)
[2018-10-25 09:09] VITALS: BP 123/83
[2018-10-25 09:36] LABS: EOSINOPHILS % (MANUAL) 21 % (0-8); LYMPHOCYTES % (MANUAL) 20 % (20-40); MONOCYTES % (MANUAL) 10 % (2-10); NEUTROPHILS % (MANUAL) 49 % (42-75)
[2018-10-25 12:02] VITALS: BP 115/83
[2018-10-25 15:40] VITALS: BP 114/76
[2018-10-25] MEDS ORDERED: ATORVASTATIN 40 MG TABLET PO SCH (21:00)
[2018-10-25] MEDS ORDERED: METOPROLOL TARTRATE 25 MG TABLET PO SCH (21:00)
== END 2018-10-25 17:50 | disposition home or self-care (01) | DRG 199 ==
LOC: ER 08:25 → TELE3 15:07
PROVIDERS: ADMIT Internal Medicine; ATTEND Internal Medicine
DX: I13.10 Hypertensive heart and chronic kidney disease without heart failure, with stage 1 through stage 4 chronic kidney disease, or unspecified chronic kidney disease (principal); N17.0 Acute kidney failure with tubular necrosis; D63.8 Anemia in other chronic diseases classified elsewhere; N18.3 Chronic kidney disease, stage 3 (moderate); F31.9 Bipolar disorder, unspecified; I25.2 Old myocardial infarction; I25.10 Atherosclerotic heart disease of native coronary artery without angina pectoris; Z95.5 Presence of coronary angioplasty implant and graft; Z86.73 Personal history of transient ischemic attack (TIA), and cerebral infarction without residual deficits; Z76.5 Malingerer [conscious simulation]; F17.210 Nicotine dependence, cigarettes, uncomplicated; E78.5 Hyperlipidemia, unspecified; Z79.82 Long term (current) use of aspirin; Z79.02 Long term (current) use of antithrombotics/antiplatelets; F41.9 Anxiety disorder, unspecified; R07.0 Pain in throat; Z86.19 Personal history of other infectious and parasitic diseases; G57.92 Unspecified mononeuropathy of left lower limb; G89.4 Chronic pain syndrome
CPT/HCPCS: 36415; 70030-TC; 70450; 71045; 72125; 83735; 84100; 85025; 93005; 93307; A4663; G0378; J2270

== ENCOUNTER 2018-10-25 18:33 | Emergency (ER) | payer MEDICAID ==
[~2018-10-25] VITALS: Ht 172.7 cm; Wt 63.5 kg
[~2018-10-25 18:33] MED LIST changes: +HYDR100T27 PO; +PANT40TA2 PO; +ZOLP10TA2 PO
--- NOTE | 2018-10-25 19:35 | NUR ---
DR. PRIETO AT [facility] FOR [facility].
--- NOTE | 2018-10-25 19:37 | NUR ---
DR. KIM BANEGAS WATER AND FI[employer] TECHNICIAN. AWAITING CALL BACK.
--- NOTE | 2018-10-25 20:01 | NUR ---
DR. ALVAREZ CALLED BACK.
--- NOTE | 2018-10-25 20:11 | NUR ---
Patient discharged to home in stable conditon. Written and verbal after care instructions given. Patient verbalizes understanding of instructions. PATIENT LEFT WITH STABLE GAIT.
[2018-10-25 20:12] VITALS: BP 110/89
== END 2018-10-25 20:13 | disposition home or self-care (01) ==
LOC: ER 18:37
DX: G89.29 Other chronic pain (principal); R07.9 Chest pain, unspecified; I25.10 Atherosclerotic heart disease of native coronary artery without angina pectoris; I12.9 Hypertensive chronic kidney disease with stage 1 through stage 4 chronic kidney disease, or unspecified chronic kidney disease; N18.3 Chronic kidney disease, stage 3 (moderate); Z76.0 Encounter for issue of repeat prescription; Z79.82 Long term (current) use of aspirin; Z79.01 Long term (current) use of anticoagulants; Z79.899 Other long term (current) drug therapy; Z88.8 Allergy status to other drugs, medicaments and biological substances
CPT/HCPCS: A4663